=== PATIENT | male | born 1975 | race African-American/Black ===

== ENCOUNTER 2018-09-23 20:12 | Emergency (ER) | payer SELFPAY ==
[~2018-09-23] VITALS: Ht 190.5 cm; Wt 116.6 kg
[2018-09-23 22:56] VITALS: BP 143/71
== END 2018-09-23 22:56 | disposition home or self-care (01) ==
LOC: ED 20:12
DX: S60.861A Insect bite (nonvenomous) of right wrist, initial encounter (principal); L03.113 Cellulitis of right upper limb; W57.XXXA Bitten or stung by nonvenomous insect and other nonvenomous arthropods, initial encounter; J45.909 Unspecified asthma, uncomplicated; Z88.8 Allergy status to other drugs, medicaments and biological substances; Y93.89 Activity, other specified; Y99.8 Other external cause status; Y92.89 Other specified places as the place of occurrence of the external cause
CPT/HCPCS: J7512